=== PATIENT | female | born 1945 ===

== ENCOUNTER 2017-03-27 08:17 | Day surgery (SDC) | payer MEDICAID ==
[2016-11-20 21:04] VITALS: BMI 58.6
[2017-03-27 10:55] VITALS: O2SAT 100
[2017-03-27] MEDS ORDERED: Lactated Ringer's 500 ML IV ONE (10:57)
[2017-03-27 12:03] VITALS: TEMP 97.3
[2017-03-27 12:33] VITALS: PULSE 55; RESP 20
[2017-03-27 13:08] VITALS: BP 130/60
== END 2017-03-27 13:06 | disposition home or self-care (01) ==
LOC: C.ENDO 08:17
PROVIDERS: ATTEND Internal Medicine Gastroenterology
DX: K29.50 Unspecified chronic gastritis without bleeding (principal); K30 Functional dyspepsia; K59.00 Constipation, unspecified; K44.9 Diaphragmatic hernia without obstruction or gangrene; K52.9 Noninfective gastroenteritis and colitis, unspecified; K64.8 Other hemorrhoids; B96.81 Helicobacter pylori [H. pylori] as the cause of diseases classified elsewhere
CPT/HCPCS: 43239; 45378; 88305; 88313; 88342; J7120